=== PATIENT | male | born 1950 | race Caucasian/White ===

== ENCOUNTER 2023-05-22 12:20 | Emergency (ER) | payer MEDICARE, OTHER ==
[2023-05-22] MEDS ORDERED: Lidocaine 1% 10 ML MDV INJECT ONE (12:39)
[2023-05-22] MEDS ORDERED: Diphtheria,Pertussis(Acell),Tetanus Vaccine 0.5 ML Syringe IM ONE (12:39)
== END 2023-05-22 13:14 | disposition home or self-care (01) ==
LOC: JD.ED 12:20
DX: S61.211A Laceration without foreign body of left index finger without damage to nail, initial encounter (principal); Z23 Encounter for immunization; W26.8XXA Contact with other sharp object(s), not elsewhere classified, initial encounter
CPT/HCPCS: 12001; 90471; 90715; 99282; 99282-25; J3490